=== PATIENT | female | born 1960 | race Caucasian/White ===

== ENCOUNTER 2018-12-13 13:13 | Emergency (ER) | payer OTHER, SELFPAY ==
[2018-12-13 13:22] VITALS: BP 93/67; PULSE 74; RESP 18; TEMP 36.4; O2SAT 98
--- NOTE | 2018-12-13 13:27 | DI.RAD.S_ITS ---
PROCEDURE: XR RIBS LT MIN 3V W CXR1V INDICATIONS: fall from horse, lt postier rib pain with soa TECHNIQUE: 3 views of the left ribs were acquired, along with a single view chest. COMPARISON: None. FINDINGS: Surgical changes and devices: None. Bones and chest wall: No fractures or dislocations. No suspicious bony lesions. Overlying soft tissues appear unremarkable. Lungs and pleura: No pleural effusions or pneumothorax. Mild left base atelectasis. Lungs are otherwise clear. Mediastinum: Mediastinal contours appear normal. Heart size is normal. IMPRESSION: No displaced left rib fracture. Dictated by: Odalis Coto M.D. on 12/13/2018 at 13:48 Approved by: Odalis Coto M.D. on 12/13/2018 at 13:52
--- NOTE | 2018-12-13 14:00 | ED_ITS ---
HPI - Fall General Chief Complaint: Fall Stated Complaint: hip and rib pain, difficulty taking deep breath Time Seen by Provider: 12/13/18 13:52 Source: patient Mode of arrival: ambulatory Limitations: no limitations History of Present Illness HPI Narrative: Patient is a 58-year-old female not on anticoagulation sent over from the walk-in clinic for evaluation after she was thrown from a horse this morning. She was wearing a helmet. She states that she landed on her right side. She states she did hit her head but had no loss of consciousness. Has been able to walk afterwards but does have left hip pain. She went into the walk -in clinic and while she was there she did have an episode of dizziness. She was sent here to the emergency department for further evaluation. Upon arrival here the patient states that the dizziness is not new for her. She states that she gets this way because her blood pressure is normally low and when she becomes anxious about situations this sort of thing happens. She is able to ambulate. As posterior left hip pain but full range of motion left hip is here because she has pinpoint tenderness to her left chest. Related Data Home Medications Medication Instructions Recorded Confirmed No Known Home Medications 12/13/18 12/13/18 Allergies Allergy/AdvReac Type Severity Reaction Status Date / Time No Known Drug Allergies Allergy Verified 12/13/18 12:30 Review of Systems Constitutional Denies fever(s), Denies frequent falls, Denies headache(s) and Denies weakness Eyes Denies blurry vision and Denies diplopia ENT Ears, Nose, Mouth, and Throat: Denies vertigo, Denies headache(s) and Denies neck pain Cardiovascular Reports chest pain (Left-sided chest wall), Denies palpitations, Denies dyspnea and Denies slow heart rate Respiratory Denies cough and Denies dyspnea Gastrointestinal Gastrointestinal: Denies abdominal pain, Denies diarrhea, Denies nausea and Denies vomiting Genitourinary Denies dysuria Musculoskeletal Denies back pain, Denies myalgias, Reports arthralgias (Left hip) and Denies neck pain Integumentary/Breasts Denies lesions and Denies rash Neurologic Denies vertigo, Denies frequent falls, Denies headache(s) and Denies weakness Endocrine Denies palpitations Hematologic/Lymphatic Comments: Not on anticoagulation Exam Initial Vital Signs Initial Vital Signs: Vital Signs Temperature 97.6 F 12/13/18 13:22 Pulse Rate 74 12/13/18 13:22 Respiratory Rate 18 12/13/18 13:22 Blood Pressure 93/67 12/13/18 13:22 Pulse Oximetry 98 12/13/18 13:22 Const General: cooperative, healthy appearing, comfortable, well developed, well groomed and No acute distress Orientation: alert, awake and oriented x3 HENMT Head: normal to inspection and normocephalic Chest Chest: normal inspection of the chest, No crepitus and tenderness (Left sided mid chest wall pain pinpoint.) Resp Effort & Inspection: normal respiratory effort Auscultation: clear to auscultation bilaterally Cardio Rate: regular rate Rhythm: regular rhythm Pulses: radial pulses present Back/Spine/Pelvis Cervical Spine: No cervical spinal tenderness, No step off deformity and cervical ROM abnormal Skin Lesions: no lesions Neuro General: alert, awake and oriented x3 Extrem General: normal to inspection and capillary refill normal Psych Appearance: grossly normal and well kempt [facility] Medical History Healthy adult (Acute) Surgical History No pertinent past surgical history (Acute) Social History Smoking Status: Never smoker Course Orders Ordered: ED Orders 12/13/18 13:27 XR ribs LT min 3V w CXR1V Stat Vital Signs - 8 hr 12/13/18 13:22 Temperature 97.6 F Pulse Rate 74 Respiratory Rate 18 Blood Pressure 93/67 Pulse Oximetry 98 MDM - Fall Imaging Data X-ray ribs: Radiologist's impression: PROCEDURE: XR RIBS LT MIN 3V W CXR1V INDICATIONS: fall from horse, lt postier rib pain with soa TECHNIQUE: 3 views of the left ribs were acquired, along with a single view chest. COMPARISON: None. FINDINGS: Surgical changes and devices: None. Bones and chest wall: No fractures or dislocations. No suspicious bony lesions. Overlying soft tissues appear unremarkable. Lungs and pleura: No pleural effusions or pneumothorax. Mild left base atelectasis. Lungs are otherwise clear. Mediastinum: Mediastinal contours appear normal. Heart size is normal. IMPRESSION: No displaced left rib fracture. Dictated by: Odalis Coto M.D. on 12/13/2018 at 13:48 Approved by: Odalis Coto M.D. on 12/13/2018 at 13:52 [facility] Narrative Medical decision making narrative: No neck pain. Alert and oriented x3. He is ambulatory. No other injuries except for the pinpoint left-sided anterior chest wall pain. The x-ray shows no signs of a displaced fracture. Patient did not want any pain medication. We did discuss that she was going to be more sore tomorrow. We did discuss she needed to replace her helmet. Will hold on further workup for now. We did discuss return precautions importance of taking big deep breath. She expressed understanding and agree with this plan. Discharge Plan Departure Patient Disposition: Home Clinical Impression: Fall from horse, Rib pain on left side, Contusion of hip, left Discharge Date/Time: 12/13/18 14:13 Interventions: ED Discharge Assessment Last Done: 12/13/18 14:11 Instructions: DI for Rib Contusion Activity Restrictions/Additional Instructions: Expect to be more sore tomorrow. If there is a specific area of discomfort in the future that was not evaluated today please return to the emergency department to have us take a look at it. Return to the emergency department for any other new or worsening symptoms Prescriptions: No Action No Known Home Medications RF: 0
== END 2018-12-13 14:13 | disposition home or self-care (01) ==
PROVIDERS: Emergency Provider Emergency Medicine
DX: R07.81 Pleurodynia (principal); S70.02XA Contusion of left hip, initial encounter; V80.010A Animal-rider injured by fall from or being thrown from horse in noncollision accident, initial encounter
CPT/HCPCS: 71101; 99283

== ENCOUNTER → 2024-05-10 12:28 | Outpatient (CLI) | payer MEDICARE, OTHER, SELFPAY ==
--- NOTE | 2024-05-10 12:30 | DI.MRI.S_ITS ---
PROCEDURE: MR KNEE RT WO CON INDICATIONS: COMPLEX TEAR OF MEDIAL MENISCUS TECHNIQUE: Noncontrast sagittal PD fast spin echo and T2 fast spin echo with fat saturation, sagittal 3-D FLASH with fat saturation; coronal T1 spin echo and PD fast spin echo with fat saturation, and axial PD fast spin echo with fat saturation through the knee. COMPARISON: [facility], CR, XR KNEE 3 VIEWS RIGHT, 04/23/2024, 21:44. FINDINGS: Image quality: Excellent. Menisci: There is medial and lateral meniscal extrusion. There is degenerative tear of the anterior horn and body of the lateral meniscus (series 10, image 16). There is flap tear of the posterior root of the medial meniscus (series 4, image 24; series 10 image 23). In addition, there is degenerative tear in the peripheral aspect of the posterior horn and body of the medial meniscus. A small radial tear is also suspected of the posterior horn. Cruciate ligaments: The anterior and posterior cruciate ligaments appear intact. Medial structures: The medial collateral ligament appears intact. The semimembranosus tendon insertions and meniscocapsular junction appear intact. Visualized portions of the pes anserinus tendons appear normal. No abnormal bursal fluid. Lateral structures: The lateral collateral ligament and the biceps femoris tendon appear intact. The popliteus tendon appears normal. Iliotibial band appears normal. Anterior structures: The quadriceps and patellar tendons appear intact. There is low-grade quadriceps tendinitis and patellar tendinitis. Patellar alignment is normal. No femoral trochlear dysplasia or ventral trochlear prominence. No edema in the infrapatellar fat pad. Bones and cartilage: No bone marrow contusions or fractures. There is mild tricompartmental cartilage thinning and fibrillation. There is a focal full thickness cartilage defect in the superior aspect of the patella (series 7 image 15). Joint space: There is small knee joint effusion. There is a moderate-sized Hudson's cyst. Normal appearing synovial plicae are incidentally noted. IMPRESSION: 1. Lateral meniscal tear involving the anterior horn and body. 2. Medial meniscal tear as described. 3. Low-grade quadriceps tendinitis and patellar tendinitis. 4. 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 A focal full-thickness cartilage defect is noted in the superior aspect of patella. 5. A moderate-sized Hudson's cyst. 6. Small knee joint effusion. Dictated by: Odalis Coto M.D. on 05/10/2024 at 15:02 Approved by: Odails Coto M.D. on 05/10/2024 at 20:11
== END ==
PROVIDERS: Referring Provider Physician Assistant; Visit Provider Physician Assistant
DX: S83.231A Complex tear of medial meniscus, current injury, right knee, initial encounter (principal); S83.281A Other tear of lateral meniscus, current injury, right knee, initial encounter; M76.51 Patellar tendinitis, right knee; M17.11 Unilateral primary osteoarthritis, right knee; M25.461 Effusion, right knee; X58.XXXA Exposure to other specified factors, initial encounter
CPT/HCPCS: 73721

== ENCOUNTER → 2024-08-03 07:33 | Outpatient (CLI) | payer MEDICARE, OTHER, SELFPAY ==
--- NOTE | 2024-08-03 07:35 | DI.MRI.S_ITS ---
PROCEDURE: MR KNEE LT WO CON INDICATIONS: EVALUATE LEFT MENISCUS TECHNIQUE: Noncontrast sagittal PD fast spin echo and T2 fast spin echo with fat saturation, sagittal 3-D FLASH with fat saturation; coronal T1 spin echo and PD fast spin echo with fat saturation, and axial PD fast spin echo with fat saturation through the knee. COMPARISON: [facility], CR, XR KNEE 3 VIEWS RIGHT, 04/23/2024, 21:44. [facility], MR, MR KNEE RT WO CON, 05/10/2024, 12:54. FINDINGS: Image quality: Excellent. Bones: Within the distal femoral metadiaphysis, there is a subcentimeter T2 hyperintense intramedullary ovoid lesion with chondroid matrix (5/13; 7/17), likely representing a low-grade chondromatous lesion such as an enchondroma. The bone marrow signal is otherwise normal. There is no acute fracture or dislocation. Joints: There is a small knee joint effusion with synovial thickening. There is moderate knee osteoarthritis. There is a possible 0.9 cm intra-articular body along the posterior-inferior aspect of the lateral femoral condyle (08/10). Hudson's cyst: Small multiloculated Hudson's cyst with synovial proliferation. No perifascial edema. Menisci: Superimposed on fraying and maceration of the medial meniscus, there is a complex bucket-handle tear of the body and posterior horn of the medial meniscus; the posterior horn is flipped on to the body and there is 8 mm of meniscal body extrusion into the medial gutter (08/31-). The medial meniscal fragments are torn from its posterior root attachment and by approximately 9 mm (09/09). There is also a 2.5 cm parameniscal cyst associated with the tear of the posterior horn of the medial meniscus (05/30). There is multifocal maceration and degeneration of the inner free edge of the lateral meniscus along with an oblique horizontal tear that extends through the body and anterior horn of the lateral meniscus. There is intermediate signal of the posterior horn of the lateral meniscus approaching the posterior root attachment (09/09). Cruciate ligaments: The anterior cruciate ligament is normal. The posterior cruciate ligament is normal. Collateral ligaments: The medial collateral ligament complex is normal. The lateral collateral ligament complex is normal. Popliteus Muscle/Tendon: The popliteus muscle and tendon are normal. Extensor mechanism: The quadriceps tendon is normal. The patellar tendon is normal. The medial and lateral patellar retinacular attachments are normal. Mild lateral tilt of the patella relative to the trochlea (5/15), which may be positional in etiology. Articular cartilage: Multifocal areas of partial thickness and near full thickness chondral loss are present at weight-bearing lateral compartment (10/21). Areas of partial thickness chondral loss are present at the anterior and weight-bearing medial compartment. Full-thickness chondral loss is present along the lateral patellofemoral compartment (5/16). Other: Mild prepatellar and infrapatellar subcutaneous edema. IMPRESSION: 1. Complex tears of the medial meniscus, predominantly with a bucket-handle tear of the posterior horn that is flipped on to the meniscal body and extruded by 8 mm into the medial gutter. 2. Complex tears of the lateral meniscus with likely extension to the posterior root attachment. 3. Moderate knee osteoarthritis with and accompanying small joint effusion, synovitis, and associated articular cartilage defects. 4. Small Hudson's cyst with synovitis. Dictated by: Rafiq Mcnally M.D. on 08/03/2024 at 14:27 Approved by: Rafiq Mcnally M.D. on 08/03/2024 at 14:48
== END ==
LOC: MRI 07:35
PROVIDERS: Referring Provider Orthopaedic Surgery; Visit Provider Orthopaedic Surgery
DX: S83.232A Complex tear of medial meniscus, current injury, left knee, initial encounter (principal); S83.272A Complex tear of lateral meniscus, current injury, left knee, initial encounter; M17.12 Unilateral primary osteoarthritis, left knee; M71.22 Synovial cyst of popliteal space [Baker], left knee; M25.462 Effusion, left knee; M65.9 Synovitis and tenosynovitis, unspecified; M25.562 Pain in left knee
CPT/HCPCS: 73721